=== PATIENT | female | born 1960 | race Caucasian/White ===

== ENCOUNTER → 2017-02-25 | Outpatient (CLI) | payer BC ==
[~2017-02-25] MED LIST: REGADENOSON 0.4 MG/5 ML DISP.SYRIN. IV ONE
--- NOTE | 2017-02-25 09:41 | PCVCIMAG ---
APPROVED REPORT Study performed: 02/25/2017 08:17:24 EXAM: Comprehensive 2D, Doppler, and color-flow Echocardiogram Patient Location: Echo lab Status: routine BSA: 1.74 HR: 54 bpmBP: 140/80 mmHg Rhythm: NSR Other Information Study Quality: Good Indications Atrial Fibrillation Hypertension/HDD Hyperlipidemia. Ruptured brain aneursym. [facility] 2D Dimensions LVEF(%): 77.40 (>50%) IVSd: 9.08 (7-11mm)LVOT Diam: 19.24 (18-24mm) LVDd: 49.43 mm PWd: 8.69 (7-11mm)Ascending Ao: 28.53 (22-36mm) LVDs: 26.59 (25-40mm) Left Atrium: 36.55 (27-40mm) Aortic Root: 27.97 mm Alcala's LVEF: 77.40 % Volumes Left Atrial Volume (Systole) Single Plane 4CH: 46.31 mLSingle Plane 2CH: 41.23 mL LA ESV Index: 26.00 mL/m2 Aortic Valve AoV Peak Rubio.: 1.96 m/s AO Peak Gr.: 15.31 mmHgLVOT Max P.39 mmHg LVOT Max V: 1.45 m/s CITLALI Vmax: 2.15 cm2 Mitral Valve E/A Ratio: 0.8 MV Decel. Time: 282.38 ms MV E Max Rubio.: 0.64 m/s MV A Rubio.: 0.76 m/s IVRT: 131.49 ms TDI E/Lateral E': 8.00E/Medial E': 10.67 Medial E' Rubio.: 0.06 m/s Preload (E/e): 0.08 (0-8m/s)Lateral E' Rubio.: 0.08 m/s Pulmonary Valve PV Peak Rubio.: 0.91 m/sPV Peak Gr.: 3.29 mmHg Pulmonary Vein P Vein S: 0.53 m/sP Vein A: 0.33 m/s P Vein D: 0.44 m/sP Vein A Dur.: 72.7 msec P Vein S/D Ratio: 1.20 Tricuspid Valve TR Peak Rubio.: 2.12 m/s TR Peak Gr.: 17.92 mmHg Left Ventricle The left ventricle is normal size. There is normal LV segmental wall motion. There is normal left ventricular wall thickness. Left ventricular systolic function is normal. The left ventricular ejection fraction is within the normal range. LVEF is 60%. The left ventricular diastolic function is normal. Right Ventricle The right ventricle is normal size. The right ventricular systolic function is normal. Atria The left atrium size is normal. The right atrium size is normal. Aortic Valve The aortic valve is normal in structure. Trace aortic regurgitation. There is no aortic valvular stenosis. Mitral Valve Systolic anterior motion of the mitral valve is present. Minimal outflow gradient. Trace mitral regurgitation. No evidence of mitral valve stenosis. Tricuspid Valve The tricuspid valve is normal in structure. Trace tricuspid regurgitation. Pulmonary artery pressure is 25mmhg. Pulmonic Valve The pulmonary valve is normal in structure. Trace pulmonic regurgitation. Great Vessels The aortic root is normal in size. IVC is normal in size and collapses with >50% inspiration Pericardium There is no pericardial effusion. <Conclusion> The left ventricle is normal size. LVEF is 60%. The left ventricular diastolic function is normal. The right ventricle is normal size. The left atrium size is normal. The aortic valve is normal in structure. Trace aortic regurgitation. Systolic anterior motion of the mitral valve is present. Minimal outflow gradient. Trace mitral regurgitation. Trace tricuspid regurgitation. Pulmonary artery pressure is 25mmhg. There is no pericardial effusion.
--- NOTE | 2017-02-25 14:42 | PCVCIMAG ---
APPROVED REPORT Exam: Nuclear Stress Test Indication: Atrial Fibrillation, CAD Patient Location: Out-Patient Stress Nurse: Aimee Dietz RN, [place] RN PA Tech:Kelley Louis [facility] Ht: 5 ft 6 in Wt: 140 lbs BSA: 1.72 m2 HR: 61 bpm BP: 155/77 mmHg BMI: 22.5 Rhythm: Bradycardia Medical History Medical History: HTN, Hyperlipidemia, AGE, CAD, AFIB, HIGH Ca Score Medications: Pacerone, Atorvastatin Allergies: No known drug allergies Pretest Chest Pain Characteristics: No chest pain NM EXAM: Myocardial Perfusion REST/STRESS Imaging Protocol: Rest Tc-99m/Stress Tc-99m 1 day Resting Data Rest SPECT myocardial perfusion imaging was performed in supine position 45 minutes following the intravenous injection of 8.5 mCi of Tc-99m Sestamibi. Time of rest injection: 0915 Date: 02/25/2017 Administration Route: IV Administration Site: Left AC Pharmacologic Stress Pharmacologic stress test was performed by injecting Regadenoson 0.4 mg IV push followed by the intravenous injection of 25.8 mCi of Tc-99m Sestamibi. Time of stress injection: 1030 Date: 02/25/2017 Administration Route: IV Administration Site: Left AC Gated Stress SPECT was performed 45 minutes after stress injection. The images were gated to evaluate regional wall motion and calculate left ventricular ejection fraction. Study Quality Study: Good Study Data Post stress, the left ventricular ejection was 61%.. SSS: 0 SRS: 3 SDS: 0 TID = 1.05. Perfusion No evidence of stress induced ischemia or prior myocardial infarction. Wall Motion Normal left ventricular size and function with no regional wall motion abnormalities. Nuclear Conclusion No evidence of stress induced ischemia or prior myocardial infarction. Normal left ventricular size and function with no regional wall motion abnormalities. No prior study available for comparison. Interpreted by: Tee Weber MD Electronically Approved: 02/25/2017 12:41:51 Stress Test Details Stress Test: Pharmacologic stress was paired with low level exercise. Reason for pharmacologic stress test: physical limitation. HR Resting HR: 61 bpmMax Heart Rate (APMHR): 164 bpm Max HR Achieved: 109 bpmTarget HR (85% APMHR): 139 bpm % of APMHR: 66 Recovery HR: 66 bpm BP Resting BP: 155/77 mmHg Max BP: 150/72 mmHg ECG Resting ECG: Sinus Bradycardia Stress ECG: Sinus Tachycardia Recovery ECG: Sinus Rhythm Clinical Reason for Termination: Completed protocol Stress Symptoms: Dyspnea Exercise duration: 4 min 00 sec Exercise capacity: 1.6 METs Symptoms resolved during recovery. Stress ECG Conclusion ECG: Non-ischemic <Conclusion> ECG: Non-ischemic
== END | disposition home or self-care (01) ==
LOC: PCVCIMAG 08:14
PROVIDERS: ATTEND Internal Medicine Cardiovascular Disease
DX: I25.10 Atherosclerotic heart disease of native coronary artery without angina pectoris (principal); I10 Essential (primary) hypertension; I48.0 Paroxysmal atrial fibrillation; I67.1 Cerebral aneurysm, nonruptured; I34.8 Other nonrheumatic mitral valve disorders; K66.1 Hemoperitoneum; E78.00 Pure hypercholesterolemia, unspecified; I34.0 Nonrheumatic mitral (valve) insufficiency; R00.1 Bradycardia, unspecified; I51.7 Cardiomegaly; Z87.891 Personal history of nicotine dependence; Z79.82 Long term (current) use of aspirin; Z79.899 Other long term (current) drug therapy
CPT/HCPCS: 78452; 93005; 93017; 93306; A9500; G0463; J2785

== ENCOUNTER → 2017-04-09 | Outpatient (CLI) | payer BC ==
--- NOTE | 2017-04-09 16:41 | PCVCIMAG ---
APPROVED REPORT Patient Location: Echo lab- [facility] STRESS TEST Room #: 1 Stress Nurse: Aimee Dietz RN INDICATIONS: Paroxysmal atrial fibrillation, Systolic anterior motion of the mitral valve, Hypertrophic cardiomyopathy, hypertension, Mitral regurgitation The patient exercised according to the Fernando Protocol for 6:00 minutes, achieving a maximum work level of 7.2 METS. The resting heart rate of 56 bpm, mohit to a maximal level of 123 bpm. This value represents 75 % of the maximal, age-predicted heart rate. The resting blood pressure of 150/102 mmHg, mohit to a maximum blood pressure of 180/100 mmHg. The exercise was stopped due to fatigue and dyspnea. Hypertensive response to exercise. Rare PVCs are seen. Conclusion #1 no production of chest pain or angina #2 no diagnostic EKG changes consistent with ischemia #3 poor to fair exercise tolerance with a slightly hypertensive hemodynamic response #4 no significant ectopy or exercise induced arrhythmia
== END | disposition home or self-care (01) ==
LOC: PCVCIMAG 10:16
PROVIDERS: ATTEND Internal Medicine Cardiovascular Disease
DX: I48.0 Paroxysmal atrial fibrillation (principal); I42.2 Other hypertrophic cardiomyopathy; I10 Essential (primary) hypertension; I34.0 Nonrheumatic mitral (valve) insufficiency
CPT/HCPCS: 93017